=== PATIENT | female | born 1985 | race Caucasian/White ===

== ENCOUNTER 2024-08-09 18:29 | Emergency (ER) | payer MEDICAID, SELFPAY ==
[2024-08-09 18:40] VITALS: BP 171/92; PULSE 108; TEMP 36.9; O2SAT 97; BMI 19.6
--- NOTE | 2024-08-09 19:19 | ECG_ITS ---
[facility] Test Date: 2024-08-09 Pat Name: SIMRAN ALEXANDRA Department: Room: - Gender: Female Inventory Controller: : 1985 Requested By: [id number] Order Number: [id number] Reading MD: TIFFANI DORAN M.D. Measurements Intervals [place] Rate: 81 P: 46 [place]: 126 QRS: 51 QRSD: 90 T: 45 QT: 358 QTc: 395 Interpretive Statements 1100 Sinus rhythm 2420 RSR (QR) in lead V1/V2, consistent with right ventricular conduction delay 9130 borderline ECG No previous ECG available for comparison Electronically Signed On 08-10-2024 7:45:46 EDT by TIFFANI DORAN M.D.
--- NOTE | 2024-08-09 19:23 | ED.GENADUL1 ---
HPI HPI - General Adult General Chief complaint: Nausea/Vomiting/Diarrhea Stated complaint: STOMACH NAUSEA FEEL SICK Time Seen by Provider: 08/09/24 19:13 Source: patient Mode of arrival: walk-in Limitations: no limitations History of Present Illness HPI narrative: Patient is a 39-year-old female who lives in [facility] presents with friend she is visiting here in [place]. Patient states she just feels worn out and fatigued. She admits to history of Suboxone use and expresses concern as she had sepsis a year ago following a hip replacement surgery. Patient states she underwent IV antibiotics and fully recovered. She does suffer from chronic low back pain and is scheduled to see a neurosurgeon at [facility]. She reports some nausea but no vomiting or diarrhea. Concerned that the Suboxone she is taking is may be masking some of her pain for a more serious condition. She denies any recent fall or injury. She readily shows multiple scars to her left hip from her prior hip surgeries. Patient states she did not take her Lyrica or baclofen tonight as she did not have it with her but feel these medications may help her as well. Patient appears in no distress at the bedside readily talking about her medical history. She denies any known fever. Patient admits that the pain in her left hip and lower back are chronic and unchanged from baseline she just feels worn out. I think I need my CBC checked. Radiation: Reports back Severity: mild Treatments prior to arrival: Reports none Related Data Previous Rx's ?Medication ?Instructions ?Recorded ondansetron HCl 4 mg tablet 4 mg PO Q6H PRN nausea and 08/09/24 vomiting #12 tabs Allergies Allergy/AdvReac Type Severity Reaction Status Date / Time ceftriaxone (From Rocephin) Allergy Unknown Unknown Verified 08/09/24 18:49 clindamycin Allergy Unknown Unknown Verified 08/09/24 18:49 ketorolac (From Toradol) Allergy Unknown Unknown Verified 08/09/24 18:49 risperidone (From Risperdal) Allergy Unknown Unknown Verified 08/09/24 18:49 Sulfa (Sulfonamide Allergy Unknown Unknown Verified 08/09/24 18:49 Antibiotics) Review of Systems ROS Constitutional Denies: fever or chills Eyes Denies: change in vision Ears, nose, mouth, and throat Denies: throat pain or neck pain Cardiovascular Denies: chest pain or palpitations Respiratory Denies: shortness of breath or cough Gastrointestinal Reports: nausea; Denies: abdominal pain, vomiting, coffee grounds in vomit or difficulty swallowing Genitourinary Denies: painful urination or urinary frequency Musculoskeletal Reports: back pain; Denies: neck pain or extremity pain Integumentary/Breast Denies: rash, itching or changes in skin color Neurological Denies: headache Psychiatric Denies: anxiety or mood swings Endocrine Denies: excessive urination Hematologic/Lymphatic Denies: easy bruising PFSH PFSH Social History Little interest or pleasure in doing things: not at all Feeling down, depressed, or hopeless: not at all Exam Narrative Exam Narrative: Nurses notes and vital signs reviewed and patient is not hypoxic. General: The patient appears well and in no apparent distress. Patient is resting comfortably on cart. Skin: Warm, dry, no pallor noted. remote surgical scars noted to the left hip no joint warmth or erythema. Head: Normocephalic, atraumatic Neck: Supple, trachea mid-line, no tenderness, no lymphadenopathy Eye: Pupils are equal, round and reactive to light, EOMI Ears, Nose, Mouth, and Throat: TM are clear, normal light reflex, oral mucosa is moist, no posterior oropharynx erythema or hypertrophy, uvula is mid-line Cardiovascular: Regular Rate and Rhythm Respiratory: Patient is in no distress, no accessory muscle use, lungs are clear to auscultation, no wheezing, rales or rhonchi. Chest Wall: no tenderness Back: Minimal soreness lower lumbar region no midline bony tenderness. Patient readily moves from seated to supine position. No CVA tenderness Musculoskeletal: normal ROM, no tenderness, no swelling, painless passive range of motion bilateral hip. Pt readily flexs hip and extends leg at bedside. GI: Normal bowel sounds, no tenderness to palpation, no masses appreciated. No rebound, guarding, or rigidity noted. Neurological: A&O x4 Psychiatric: Cooperative Constitutional Vital Signs, click to edit/add: Last Vital Signs Temp 98.5 F 08/09/24 18:40 Pulse 108 H 08/09/24 18:40 Resp 19 08/09/24 18:40 BP 171/92 H 08/09/24 18:40 Pulse Ox 97 08/09/24 18:40 O2 Del Method Room Air 08/09/24 18:40 Course Vital Signs Vital signs: Vital Signs Temperature 98.5 F 08/09/24 18:40 Pulse Rate 108 H 08/09/24 18:40 Respiratory Rate 19 08/09/24 18:40 Blood Pressure 171/92 H 08/09/24 18:40 Pulse Oximetry 97 08/09/24 18:40 Oxygen Delivery Method Room Air 08/09/24 18:40 Temperature 98.5 F 08/09/24 18:40 Pulse Rate 108 H 08/09/24 18:40 Respiratory Rate 19 08/09/24 18:40 Blood Pressure 171/92 H 08/09/24 18:40 Pulse Oximetry 97 08/09/24 18:40 Oxygen Delivery Method Room Air 08/09/24 18:40 Medical Decision Making MDM Narrative Medical decision making narrative: Patient with a history of Suboxone use states she missed her dose today but does take this regularly she reports feeling fatigued and wore out. She denies any new onset pain states she is seeing [facility] neurosurgery for her back. She has very vague complaints without focal concern for new infection or injury. Her physical exam is rather benign with mild low back pain and no radicular symptoms reported. Reviewed her oarrs report consistent with recent history. As she is traveling from home she does not have her current medication and was treated here with Zofran 4 mg p.o., Pepcid, baclofen and pregabalin Patient reevaluated. Nausea improved, she notes some mild stomach discomfort. We discussed her laboratory studies no evidence of infection urinalysis also reviewed. I do not feel she warrants any imaging at this time. We discussed her complicated history and chief concern that she may be developing an infection masked by her Suboxone use. Labs and vital signs do not reflect this at the present time. She is encouraged to keep her's follow-up with her specialist for pain management and seed specialist. She has no other focal concerns today other than feeling fatigued and tired. She is relieved to know that her lab work looked well. She is encouraged to follow-up with her family doctor if symptoms do not improve The patient is to followup with primary care physician in next 2-3 days or to return to the emergency department should any of the signs or symptoms worsen or new symptoms develop. Patient had questions answered. The patient agrees with the following Diagnosis and Treatment plan and the patient will be discharged home. A prescription of Zofran has been sent to local pharmacy as she is likely visiting here through the weekend. Patient was given doses of her normal medication here but states she does have these prescriptions available at home. Lab Data Labs: Lab Results 08/09/24 08/09/24 Range/Units 19:39 19:56 WBC 6.2 (4.0-11.0) 10^3/uL RBC 4.40 (4.20-5.40) 10^6/uL Hgb 14.0 (12.0-16.0) g/dL Hct 41.9 (36.0-48.0) % MCV 95.2 (81.0-99.0) fL MCH 31.8 (26.7-34.0) pg MCHC 33.4 (29.9-35.2) g/dL RDW 12.1 (11.0-15.0) % Plt Count 238 (150-450) 10^3/uL MPV 8.9 L (9.5-13.5) fL Neut % (Auto) 59.2 (43.0-75.0) % Lymph % (Auto) 26.8 (20.5-60.0) % [place] % (Auto) 9.2 (1.7-12.0) % Eos % (Auto) 3.7 (0.9-7.0) % Baso % (Auto) 0.8 (0.2-2.0) % Neut # (Auto) 3.7 (1.4-6.5) 10^3/uL Lymph # (Auto) 1.7 (1.2-3.8) 10^3/uL [place] # (Auto) 0.6 (0.3-0.8) 10^3/uL Eos # (Auto) 0.2 (0.0-0.7) 10^3/uL Baso # (Auto) 0.1 (0.0-0.1) 10^3/uL Abs Immat Gran (auto) 0.02 (0.00-0.03) 10^3/uL Imm/Tot Granulo (auto) 0.3 (0.0-0.5) % Sodium 142 (136-145) mmol/L Potassium 3.9 (3.5-5.1) mmol/L Chloride 105 (98-107) mmol/L Carbon Dioxide 27.4 (21.0-32.0) mmol/L Anion Gap 13.5 BUN 12.0 (7.0-18.0) mg/dL Creatinine 0.69 (0.55-1.02) mg/dL Est GFR ( Amer) >60 (>=60 mL/min/1.73m^2) Est GFR (Non-Af Amer) >60 (>=60 mL/min/1.73m^2) BUN/Creatinine Ratio 17.4 Glucose 81 (74-106) mg/dL Lactate 0.8 (0.4-2.0) mmol/L Calcium 9.0 (8.5-10.1) mg/dL Total Bilirubin 0.4 (0.2-1.0) mg/dL AST 15 (15-37) U/L ALT 21 (14-59) U/L Alkaline Phosphatase 49 (46-116) U/L Troponin I High Sens 6.6 (4.0-51.3) pg/mL Total Protein 6.0 L (6.4-8.2) g/dL Albumin 3.6 (3.4-5.0) g/dL Globulin 2.4 g/dL Albumin/Globulin Ratio 1.5 Serum HCG, Qual Negative (NEGATIVE) Urine Color Lt. yellow (YELLOW) Urine Clarity Clear (CLEAR) Urine pH 6.0 (5.0-9.0) Ur Specific [place] 1.010 (1.005-1.025) Urine Protein Negative (NEG/TRACE) mg/dL Urine Glucose (UA) Negative (NEGATIVE) mg/dL Urine Ketones 15 A (NEGATIVE) mg/dL Urine Occult Blood Negative (NEGATIVE) Urine Nitrite Negative (NEGATIVE) Urine Bilirubin Negative (NEGATIVE) Urine Urobilinogen 0.2 (0.2-1.0) EU/dL Ur Leukocyte Esterase Negative (NEGATIVE) Urine RBC None seen (0-2) #/HPF Urine WBC 0-2 A (NONE SEEN) #/HPF Ur Squamous Epith Cells Moderate A (NONE/RARE) #/LPF Urine Crystals None seen (None Seen) #/HPF Urine Bacteria Trace A (NONE SEEN) #/HPF Urine Casts None seen (NONE SEEN) #/LPF Urine Mucus None seen (NONE SEEN) Ur Culture Indicated? No ECG Data Attestation: I personally reviewed and interpreted this ECG as follows: Interpretation: EKG interpretation: Emergency Department physician interpretation, normal sinus rhythm 81 BPM , no ST segment elevation, normal axis. Discharge Plan Discharge Chief Complaint: Nausea/Vomiting/Diarrhea Clinical Impression: Nausea, Fatigue Patient Disposition: Home, Self-Care Time of Disposition Decision: 20:13 Condition: Good Prescriptions / Home Meds: New ondansetron HCl 4 mg tablet 4 mg PO Q6H PRN (Reason: nausea and vomiting) Qty: 12 0RF Print Language: Slovak Instructions: Fatigue (ED) Additional Instructions: Keep appt with your specialists. Recommend appt with your pcp if fatigue symptoms persist in 3-5 days Referrals: JUDIE NORMAN [Nurse Practitioner, Family Practice] - 1 week
[2024-08-09] MEDS: ONDANSETRON 4 MG RAPDIS TABLET SL (19:29)
[2024-08-09] MEDS: BACLOFEN 10 MG TABLET 20 MG PO (19:43)
[2024-08-09] MEDS: PREGABALIN 75 MG CAPSULE 150 MG PO (19:43)
[2024-08-09 19:48] LABS: Basophils Absolute Auto 0.1 10^3/uL (0.0-0.1); Basophils Percent Auto 0.8 % (0.2-2.0); Eosinophils Absolute Auto 0.2 10^3/uL (0.0-0.7); Eosinophils Percent Auto 3.7 % (0.9-7.0); Hematocrit 41.9 % (36.0-48.0); Immature Granulocytes Abs Auto 0.02 10^3/uL (0.00-0.03); Immature Granulocytes Pct Auto 0.3 % (0.0-0.5); Lymphocytes Absolute Auto 1.7 10^3/uL (1.2-3.8); Lymphocytes Percent Auto 26.8 % (20.5-60.0); Mean Corpuscular HGB Conc 33.4 g/dL (29.9-35.2); Mean Corpuscular Hemoglobin 31.8 pg (26.7-34.0); Mean Corpuscular Volume 95.2 fL (81.0-99.0); Mean Platelet Volume 8.9 fL (9.5-13.5); Monocytes Absolute Auto 0.6 10^3/uL (0.3-0.8); Monocytes Percent Auto 9.2 % (1.7-12.0); Neutrophils Absolute Auto 3.7 10^3/uL (1.4-6.5); Neutrophils Percent Auto 59.2 % (43.0-75.0); Platelet Count 238 10^3/uL (150-450); Red Cell Distribution Width 12.1 % (11.0-15.0); White Blood Count 6.2 10^3/uL (4.0-11.0)
[2024-08-09] MEDS: FAMOTIDINE 20 MG TABLET 40 MG PO (19:50)
[2024-08-09 20:05] LABS: Alanine Aminotransferase 21 U/L (14-59); Albumin Globulin Ratio 1.5; Albumin Level 3.6 g/dL (3.4-5.0); Alkaline Phosphatase 49 U/L (46-116); Anion Gap 13.5; Aspartate Amino Transferase 15 U/L (15-37); BUN Creatinine Ratio 17.4; Bilirubin Total 0.4 mg/dL (0.2-1.0); Carbon Dioxide 27.4 mmol/L (21.0-32.0); Chloride 105 mmol/L (98-107); Estimated GFR (African America >60 (>=60 mL/min/1.73m^2); Estimated GFR (Non-African Ame >60 (>=60 mL/min/1.73m^2); Globulin 2.4 g/dL; Glucose 81 mg/dL (74-106); Lactate/Lactic Acid 0.8 mmol/L (0.4-2.0); Potassium 3.9 mmol/L (3.5-5.1); Sodium 142 mmol/L (136-145); Troponin I High Sensitivity 6.6 pg/mL (4.0-51.3)
[2024-08-09 20:05] LABS: Bilirubin Urine NEGATIVE (NEGATIVE); Blood Urine NEGATIVE (NEGATIVE); Clarity Urine CLEAR (CLEAR); Color Urine LT. YELLOW (YELLOW); Glucose Urine UA NEGATIVE (NEGATIVE); Ketones Urine 15 mg/dL (NEGATIVE); Leukocyte Esterase Urine NEGATIVE (NEGATIVE); Nitrite Urine NEGATIVE (NEGATIVE); Protein Urine NEGATIVE (NEG/TRACE); Urobilinogen Urine 0.2 EU/dL (0.2-1.0)
[2024-08-09 20:07] LABS: HCG Qualitative NEGATIVE (NEGATIVE); Internal Control Within Normal Limits
[2024-08-09 20:11] LABS: Bacteria Urine TRACE #/HPF (NONE SEEN); Cast Seen? NONE SEEN #/LPF (NONE SEEN); Crystals Seen? None Seen #/HPF (None Seen); Mucus Urine NONE SEEN (NONE SEEN); RBC Urine NONE SEEN #/HPF (0-2); Squamous Epithelial Cell Urine MODERATE #/LPF (NONE/RARE); Urine Culture Indicated NO; WBC Urine 0-2 #/HPF (NONE SEEN)
[2024-08-09 20:24] VITALS: BP 133/94; PULSE 78; O2SAT 100
== END 2024-08-09 20:25 | disposition home or self-care (01) ==
PROVIDERS: Personal Emergency Response Attendant; Emergency Provider Internal Medicine
DX: R53.83 Other fatigue (principal); R11.0 Nausea; Z79.899 Other long term (current) drug therapy; Z96.642 Presence of left artificial hip joint; M54.50 Low back pain, unspecified
CPT/HCPCS: 36415; 80053; 81001; 83605; 84484; 84703; 85025; 93005; 99285; Q0162

== ENCOUNTER 2024-08-11 13:48 | Emergency (ER) | payer MEDICAID, SELFPAY ==
[2024-08-11 13:58] VITALS: BP 124/82; PULSE 69; O2SAT 97; BMI 19.2
[2024-08-11 14:05] VITALS: TEMP 36.5
--- NOTE | 2024-08-11 14:17 | ED.GENADUL1 ---
HPI HPI - General Adult General Chief complaint: Recheck/Abnormal Lab/Rx Stated complaint: CHECK MEDICINE REACTION Time Seen by Provider: 08/11/24 14:08 Source: patient Mode of arrival: walk-in History of Present Illness HPI narrative: The patient is a 39-year-old female who presents to the emergency department today for evaluation of concerns for generally not feeling well and fatigue. She is a very vague and confusing historian. She reports for the past few days she thought she was poisoned and mentions this was after drinking a bottle of water. She is requesting to have blood work checked. She denies any fever/chills, cough/cold symptoms, chest pain, shortness of breath, abdominal pain, vomiting, or diarrhea. No urinary symptoms or back/flank pain. She mention she does feel a little nauseous at times. She is visiting from out of town and is here with a friend who states she was seen a few days ago in the ER and prescribed Zofran which the patient states she has not picked up yet. Patient does endorse a significant history for Suboxone use and states she is on antibiotic therapy due to sepsis from a hip replacement. She has an appointment with her neurosurgeon at [facility] in the next week. Related Data Home Medications ?Medication ?Instructions ?Recorded ?Confirmed baclofen 20 mg tablet mg 08/11/24 buprenorphine 8 mg-naloxone 2 mg tab sublingual 08/11/24 sublingual tablet dextroamphetamine-amphetamine ER PO 08/11/24 10 mg 24hr capsule,extend release dextroamphetamine-amphetamine ER PO 08/11/24 15 mg 24hr capsule,extend release famotidine 40 mg tablet mg 08/11/24 ferrous sulfate 325 mg (65 mg mg 08/11/24 iron) tablet (FeroSul) methylprednisolone 4 mg tablet mg 08/11/24 pregabalin 150 mg capsule mg 08/11/24 Previous Rx's ?Medication ?Instructions ?Recorded ondansetron HCl 4 mg tablet 4 mg PO Q6H PRN nausea and 08/09/24 vomiting #12 tabs Allergies Allergy/AdvReac Type Severity Reaction Status Date / Time ceftriaxone (From Rocephin) Allergy Unknown Unknown Verified 08/09/24 18:49 clindamycin Allergy Unknown Unknown Verified 08/09/24 18:49 ketorolac (From Toradol) Allergy Unknown Unknown Verified 08/09/24 18:49 risperidone (From Risperdal) Allergy Unknown Unknown Verified 08/09/24 18:49 Sulfa (Sulfonamide Allergy Unknown Unknown Verified 08/09/24 18:49 Antibiotics) Review of Systems ROS Status of ROS 10 or more systems reviewed and unremarkable except as noted in history and below PFSH PFSH Social History Little interest or pleasure in doing things: not at all Feeling down, depressed, or hopeless: not at all Exam Narrative Exam Narrative: Constituational: Awake/ alert, no apparent distress, thin, chronically ill-appearing, appears older than stated age HENMT: normocephalic, external ears normal, moist oral mucous membranes and oropharynx normal Eyes: EOMI and conjunctivae normal Neck: ROM intact Chest: inspection of chest normal Respiratory: Normal respiratory effort, clear to auscultation bilaterally Cardio: regular rate and regular rhythm GI: soft to palpation and non-tender Back: nontender MSK: ROM intact, +NVI Skin: no rashes or petechiae Neuro: no focal deficits Psych: mental status grossly normal Constitutional Vital Signs, click to edit/add: Last Vital Signs Temp 97.7 F 08/11/24 14:05 Pulse 69 08/11/24 13:58 Resp 18 08/11/24 13:58 BP 124/82 08/11/24 13:58 Pulse Ox 97 08/11/24 13:58 O2 Del Method Room Air 08/11/24 13:58 Course Vital Signs Vital signs: Vital Signs Pulse Rate 69 08/11/24 13:58 Respiratory Rate 18 08/11/24 13:58 Blood Pressure 124/82 08/11/24 13:58 Pulse Oximetry 97 08/11/24 13:58 Oxygen Delivery Method Room Air 08/11/24 13:58 Temperature 97.7 F 08/11/24 14:05 Pulse Rate 69 08/11/24 13:58 Respiratory Rate 18 08/11/24 13:58 Blood Pressure 124/82 08/11/24 13:58 Pulse Oximetry 97 08/11/24 13:58 Oxygen Delivery Method Room Air 08/11/24 13:58 Medical Decision Making [facility] Narrative Medical decision making narrative: The patient is a nontoxic however chronically ill-appearing 39-year-old female who presented to the emergency department today for evaluation of concerns for vague complaints of fatigue and generally not feeling well. Patient endorsed these of the same symptoms she was seen in the ER a few days prior for at which time she had lab work done. Patient had been seen in the ER 08/09 with noted similar complaints of fatigue at which time she had stable labs and urinalysis at that time. Zofran had been prescribed at that time and she mention she has not yet been to the pharmacy to pick this medication up. Historically no new symptoms or changes since her ER visit at that time on 08/09. Patient's behaviors somewhat odd and did spend time discussing patient's concerns of fatigue, however there did not appear to be any associated sick symptoms with this. She does not obviously appear to be exhibiting any ischemic symptoms, and is euvolemic/well-hydrated on exam. Additionally no acute abdominal findings on exam. She is requesting to have repeat labs done today and did review the ER workup with her on 08/09 and discussed consideration for repeat labs, +/- chest x-ray, EKG, +/- UDS (she had expressed concerns for being poisoned ) vs continuation of supportive measures for her symptoms of fatigue and follow-up with her primary care provider -> for now to proceed with supportive measures at this time and cloth picker the prescription of Zofran that had previously been prescribed. Discussed signs and symptoms of any worsening condition and when to consider reevaluation. Patient verbalized an understanding of this and is agreeable with the plan to be discharged home. Medical Records Medical records reviewed: Yes I reviewed the patient's medical records Lab Data Lab results reviewed: Yes I reviewed the patient's lab results (Reviewed stable labs from ER visit 08/09) Discharge Plan Discharge Chief Complaint: Recheck/Abnormal Lab/Rx Clinical Impression: Fatigue Patient Disposition: Home, Self-Care Prescriptions / Home Meds: No Action famotidine 40 mg tablet methylprednisolone 4 mg tablet baclofen 20 mg tablet ferrous sulfate [FeroSul] 325 mg (65 mg iron) tablet dextroamphetamine-amphetamine 10 mg capsule,extended release 24hr PO dextroamphetamine-amphetamine 15 mg capsule,extended release 24hr PO buprenorphine-naloxone 8-2 mg tablet, sublingual SUBLINGUAL pregabalin 150 mg capsule ondansetron HCl 4 mg tablet 4 mg PO Q6H PRN (Reason: nausea and vomiting) Qty: 12 0RF Print Language: Anguillan Instructions: Fatigue (ED) Additional Instructions: Follow-up with your primary care provider for reevaluation as discussed. May return to the ER with any concerns. Referrals: Physician,Non-Staff, MD [Primary Care Provider] - 1 week
== END 2024-08-11 14:20 | disposition home or self-care (01) ==
PROVIDERS: Emergency Provider Emergency Medicine
DX: R53.83 Other fatigue (principal); Z96.649 Presence of unspecified artificial hip joint
CPT/HCPCS: 99282